=== PATIENT | female | born 2000 | race Two or more races ===

== ENCOUNTER 2022-06-09 21:57 | Emergency (ER) | payer MEDICAID ==
[~2022-06-09] VITALS: Ht 165.1 cm; Wt 52.6 kg
--- NOTE | 2022-06-09 22:15 | NUR ---
[id number] FOR ANXIETY AND TACHYCARDIA S/P SMOKING MARIJUANA AT 2100. PT [id number] BREATHING EVENLY AND UNLABORED. PT ATTACHED TO MONITOR AND POX. SKIN WNL. WILL CONTINUE TO MONITOR.
[2022-06-09] MEDS: LORAZEPAM 1 MG TABLET PO ONE (22:30)
[2022-06-09] MEDS ORDERED: LORAZEPAM 1 MG TABLET ONE (22:35)
--- NOTE | 2022-06-09 23:21 | NUR ---
Patient discharged to home in stable condition. Written and verbal after care instructions given. Patient verbalizes understanding of instruction. PT ambulatory with a steady gait
[2022-06-09 23:29] VITALS: BP 108/89
== END 2022-06-09 23:21 | disposition home or self-care (01) ==
LOC: ER 22:10
DX: F12.10 Cannabis abuse, uncomplicated (principal); F41.9 Anxiety disorder, unspecified